=== PATIENT | male | born 1965 | race Caucasian/White ===

== ENCOUNTER 2017-05-20 15:29 | Outpatient (CLI) | payer OTHER ==
--- NOTE | 2017-05-20 16:15 | RAD ---
TWO VIEW CHEST: Comparison: None. History: Dyspnea. FINDINGS: Mild patchy left basilar density is present. There is also a mild degree of pleural thickening/fluid at the inferior left chest. The cardiac silhouette is within normal limits of size. There is calcific density overlying the right axillary soft tissues. There is a somewhat spiculated appearing density emanating from the pleural margin of the lateral left lung apex. IMPRESSION: 1. Patchy left basilar opacity with probable small volume pleural fluid. 2. Spiculated patchy density of the superolateral left hemithorax. Probable associated pleural thicke neto present. Underlying malignancy cannot be excluded. Dedicated CT thorax is recommended to further characterize. Code T POS: [facility]
== END 2017-05-20 15:30 | disposition home or self-care (01) ==
LOC: RAD 15:29
PROVIDERS: ATTEND Thoracic Surgery (Cardiothoracic Vascular Surgery)
DX: J86.9 Pyothorax without fistula (principal); J98.4 Other disorders of lung
CPT/HCPCS: 71046

== ENCOUNTER 2018-03-05 07:55 | Outpatient (CLI) | payer OTHER ==
--- NOTE | 2018-03-05 13:40 | CT ---
CT THORAX WITH CONTRAST CT ABDOMEN WITH CONTRAST CT PELVIS WITH CONTRAST: DATE: 03/05/18 HISTORY: 52-year-old male with: C34.32 malignant neoplasm of lower lobe, left bronchus or lung. C79.51 secondary malignant neoplasm of bone. TECHNIQUE: IV iodinated contrast media: Isovue. Oral contrast media: Readi-Cat. Single phase scans of thorax, abdomen, and pelvis. COMPARISON: Attenuation correction CT for PET scan of 12/12/17 from [facility], and PET images. The PET CT fusion images are not available for review. The report is not available for review. FINDINGS: Thorax: Right IJ implantable vascular access port with distal tip at lower SVC. In the upper mediastinum, the re is an ill-defined, small, irregularly shaped right anterior paratracheal soft tissue density lesio n that currently measures approximately 0.5 x 0.2 x 0.8 cm when only the central nodular component is included on the measurements. It has ill-defined extension that irradiate peripherally, making it im possible to precisely measure. This area was FDG-avid on the PET scan. It probably has not significan tly changed (axial image 14 of 136, series 2; coronal image 73 of 152, series 601). The right lung is essentially clear. There is diffuse thickening of pulmonary septa throughout the left lung. This is nonspecific, but may represent post radiation changes. There is diffuse, circumferential pleural thic kening throughout the left hemithoracic cavity, which appears similar to that of the previous attenua tion-correction CT. There is a very small pleural effusion associated with this at the posterior, dep endent portion of the left hemithoracic cavity. Abutting this pleural effusion, there is an approxima tely 2.5 x 5 x 2 cm focus of consolidation in the posterior base of the left lower lobe, which is unc hanged. This was not significantly FDG-avid. There is an approximately 2.5 x 2 x 3 cm lobular left hilar mass with heterogeneous enhancement which was FDG-avid, consistent with lung cancer. This has not significantly changed in size. There are no new enlarged mediastinal lymph nodes. There are several enlarged bilateral axillary lymph nodes. Thes e were FDG-avid. A typical lymph node in the right axilla is approximately 1 x 0.8 cm (axial image 5 of 136, series 2). There is a necrotic lymph node measuring 1.5 x 1 cm located far medially and super iorly, just posterior to the upper medial aspect of the right pectoralis minor muscle, which is uncha nged (axial image 9 of 136, series 2). In the left axilla, the largest lymph node is 1.5 x 2.0 x 2.0 cm (13 of 136, series 2; 69 of 152, series 601). Abutting the anterior left pleural surface, there is an approximately 1 x 1 cm irregularly-shaped pulmonary density which had at least mild FDG uptake. I t is unchanged. This may be inflammatory, less likely neoplastic (26 of 62, series 3). Abdomen: A large number of surgical clips in the gallbladder fossa and along the medial edge of the right lobe of the liver. There are several faint, very subtle, 1 cm or smaller mild hypodensities in the right lobe of the lauren er. Were it not for the PET scan images, these would be inconspicuous on this CT. For example, in the lower portion of the right lobe of the liver, in hepatic segment 5, there is such a lesion (axial im age 73 of 136, series 2). Because it was FDG-avid, it is suspicious for a hepatic metastasis. There a re several others similar in appearance, but much smaller, more superiorly in the right lobe of the l iver, which were not necessarily FDG-avid. The left adrenal gland is diffusely increased in size, and is very FDG-avid. (The enlargement is best appreciated on coronal image 75 of 152, series 601.) The left adrenal gland appears thickened, but does not have the appearance of a discrete mass on the axia l images, suggestive of hyperplasia. However, the FDG avidity suggests that this is a metastasis. The re is a much smaller focus of FDG avidity in the contralateral right adrenal gland, which is mildly t hickened. Pancreas, spleen, and bilateral kidneys demonstrate no major pathology. Small, round, approximately 1 cm, parenchymal lesion in the right renal lower pole posterolaterally is too small to characterize, but is probably a cyst. IVC filter. No retroperitoneal, rosemarie hepatis, or mesenteric lymphadenopathy. No ascites. No abdominal aortic aneurysm. Pelvis: Sigmoid colonic diverticulosis without diverticulitis. No small bowel dilation. No ascites. Normal ur inary bladder. No iliac chain lymphadenopathy. Normal appendix. Skeleton: Approximately 2.5 x 2.5 x 2 cm osteolytic metastatic lesion at the right iliac bone, abutting the duc f of the right acetabulum, was highly FDG-avid. Unchanged. There are other, smaller osteolytic lesions that were FDG-avid, including anterior aspect of left pavithra ac wing. There are also sclerotic osseous lesions, including in thoracic and lumbar vertebral bodies at multiple levels, also FDG-avid. FDG-avid areas in bilateral sacral ala and upper sacral bodies are probably also metastases. Within the limitations of comparing a nondiagnostic attenuation correction CT for PET scan with the c urrent contrast enhanced study, there is no obvious major interval change. IMPRESSION: 1. Left hilar primary lung cancer. 2. Numerous osseous metastases. 3. Diffusely prominent interstitial markings (probably representing thickened pulmonary septa) and c ircumferential rind of mild pleural thickening plus small pleural effusion, involving left hemithorac ic cavity. These are nonspecific findings. Possible etiologies include post radiation changes or lym phangitic carcinomatosis. 4. Tiny, subtle, approximately 1 cm lesion in the right lobe of the liver, which was FDG-avid, somew hat suspicious for hepatic metastasis. 5. Other tiny hypodensities elsewhere in the liver that were not necessarily FDG-avid (please review the report of that PET scan, which is unavailable to us). 6. Bilateral metastatic axillary lymphadenopathy. 7. Probable bilateral adrenal metastases. 8. Small FDG-avid lesion in the right upper mediastinum, questionable for metastatic lymph node. 9. No definite interval change is detected compared to 12/12/17. KE Medina POS: [place]
[2018-03-05] MEDS ORDERED: Iopamidol 370 76% 100 ML VIAL ONE (13:57)
== END 2018-03-05 07:56 | disposition home or self-care (01) ==
LOC: CT 07:55
PROVIDERS: ATTEND Internal Medicine Hematology & Oncology
DX: C79.51 Secondary malignant neoplasm of bone (principal); C34.32 Malignant neoplasm of lower lobe, left bronchus or lung; J90 Pleural effusion, not elsewhere classified; K76.89 Other specified diseases of liver; R59.0 Localized enlarged lymph nodes; M89.9 Disorder of bone, unspecified; R93.2 Abnormal findings on diagnostic imaging of liver and biliary tract; Z92.3 Personal history of irradiation
CPT/HCPCS: 71260; 74177

== ENCOUNTER 2018-03-25 13:56 | Day surgery (SDC) | payer OTHER ==
[2018-03-25] MEDS ORDERED: diphenhydrAMINE 25 MG CAP PO SCH (15:00)
[2018-03-25] MEDS ORDERED: Acetaminophen 500 MG TAB PO SCH (15:00)
[2018-03-25] MEDS ORDERED: Sodium Chloride 0.9% 10 ML ONE ×2 (15:01→21:21)
[2018-03-25] MEDS ORDERED: Acetaminophen 500 MG TAB ONE (15:02)
[2018-03-25 20:58] VITALS: BP 107/74; TEMP 97
[2018-03-25 21:48] LABS: Lymphocytes 53 % (21-51); MDiff Complete? YES; Mean Corpuscular HGB CONC 34.8 g/dL (32.0-36.0); Mean Corpuscular Volume 89.2 fL (78.0-98.0); Mean Platelet Volume 7.7 fL (7.4-10.4); Monocytes 13 % (0-10); Neutrophil 34 % (42-75); PLT Morphology Comment Appears Decreased; Platelet Count 82 thou/uL (130-400); RBC Distribution Width 18.7 % (11.5-14.5); Red Blood Cell (RBC) Count 2.58 mill/uL (4.70-6.10); White Blood Cell (WBC) Count 1.3 thou/uL (4.8-10.8)
== END 2018-03-25 21:41 | disposition home or self-care (01) ==
LOC: ONC/OP 13:56
PROVIDERS: ATTEND Nurse Practitioner Acute Care
PROC: 30233N1 Transfusion of Nonautologous Red Blood Cells into Peripheral Vein, Percutaneous Approach (ICD-10-PCS; principal; 2018-03-25)
DX: D64.9 Anemia, unspecified (principal); D69.6 Thrombocytopenia, unspecified
CPT/HCPCS: 36415; 36430; 85025; 86850; 86900; 86901; J1642; P9016

== ENCOUNTER 2018-05-14 08:47 | Outpatient (CLI) | payer OTHER ==
[2018-05-14] MEDS ORDERED: Iopamidol 370 76% 100 ML VIAL ONE (09:00)
--- NOTE | 2018-05-14 12:06 | CT ---
CONTRAST ENHANCED CT IMAGES OF CHEST, ABDOMEN, AND PELVIS: History: Patient with history of lung cancer with bony metastases. Technique: Contrast enhanced CT images of chest, abdomen, and pelvis obtained. Comparison: 03-05-18 FINDINGS: There are numerous right supraclavicular enlarged lymph nodes. Left axillary enlargement is also seen . There is near complete collapse of the left upper lobe. There is an enlarging left hilar mass. A smal l left sided pleural effusion is seen. There are some areas of developing hyperventilation in the lef t lung lower lobe region. There is an area of peripherally enhancing pericardial lesion measuring approximately 15 mm in the up per aspect of the pericardium, axial image 32. There is also developing pericardial effusion. Numerous and extensive thoracic, lumbar, pelvic, multiple rib, left humeral head and left femoral hea d metastatic osseous lesions seen. CT abdomen and pelvis demonstrates numerous increasing size newly developing hepatic metastases. The gallbladder has been surgically removed. The spleen is unremarkable. Bilateral adrenal metastatic lesions seen. There is a newly developed retroperitoneal lymph node posterior to the pancreatic head and anterior t o the inferior vena cava seen on axial image 67. This measures approximately 2.3 x 1.6 cm. Inferior vena caval filter is in place. IMPRESSION: 1. Increasing left upper lobe lung consolidation and collapse and enlarging left hilar mass with enla rging left axillary lymph nodes, pericardial lymph nodes, as well as newly developed and increasing h epatic metastases. There is also bilateral adrenal metastases which appear to be slightly larger than on the previous comparison exam. 2. Extensive osseous metastatic lesions. POS: [facility]
== END 2018-05-14 08:48 | disposition home or self-care (01) ==
LOC: SCSCT 08:47
PROVIDERS: ATTEND Internal Medicine Hematology & Oncology
DX: C34.32 Malignant neoplasm of lower lobe, left bronchus or lung (principal); C79.51 Secondary malignant neoplasm of bone; J18.1 Lobar pneumonia, unspecified organism; R91.8 Other nonspecific abnormal finding of lung field; J98.19 Other pulmonary collapse; C78.7 Secondary malignant neoplasm of liver and intrahepatic bile duct; C79.71 Secondary malignant neoplasm of right adrenal gland; C79.72 Secondary malignant neoplasm of left adrenal gland
CPT/HCPCS: 71260; 74177